=== PATIENT | male | born 1950 | race Caucasian/White ===

== ENCOUNTER 2021-08-07 17:54 | Inpatient (IN) | payer OTHER ==
[2021-08-07 20:03] VITALS: BMI 21.7
[2021-08-07] MEDS ORDERED: ACETAMINOPHEN 325 MG TABLET (FP) PO PRN (21:31)
[2021-08-07] MEDS ORDERED: LOPERAMIDE HCL 2 MG CAPSULE PO PRN (21:31)
[2021-08-07] MEDS ORDERED: BENZOCAINE/MENTHOL (CHLORASEPTIC ) LOZENGE MM PRN (21:31)
[2021-08-07] MEDS ORDERED: chlordiazePOXIDE HCL 25 MG CAPSULE PO PRN (21:31)
[2021-08-07] MEDS ORDERED: BISMUTH SUBSALICYLATE 524 MG/30 ML PO PRN (21:31)
[2021-08-07] MEDS ORDERED: DICYCLOMINE HCL 10 MG CAPSULE PO PRN (21:31)
[2021-08-07] MEDS ORDERED: MAG HYDROX/AL HYDROX/SIMETH 30 ML UNIT-DOSE CUP PO PRN (21:31)
[2021-08-07] MEDS ORDERED: MAGNESIUM CITRATE 300 ML BOTTLE PO PRN (21:31)
[2021-08-07] MEDS ORDERED: MAGNESIUM HYDROX 2400MG/30ML ORAL SUSPENSION 30 ML CUP PO PRN (21:31)
[2021-08-08] MEDS: THIAMINE HCL 100 MG TABLET (FP) PO SCH ×2 (00:02→22:28)
[2021-08-08] MEDS: ONDANSETRON *ODT* 4 MG TABLET SL PRN ×2 (00:02→09:01)
[2021-08-08] MEDS: chlordiazePOXIDE HCL 25 MG CAPSULE PO SCH ×5 (00:02→22:28)
[2021-08-08] MEDS: MELATONIN 5 MG TABLETS PO SCH ×2 (00:02→22:28)
[2021-08-08] MEDS: METHOCARBAMOL 500 MG TABLET PO PRN ×2 (10:20→22:29)
[2021-08-08] MEDS: PRENATAL VITAMINS W/ FOLIC ACID TABLET (FP) PO SCH (10:20)
[2021-08-08 12:57] LABS: HEMATOCRIT 41.2 % (35.4-49); HEMOGLOBIN 14.1 GM/dL (11.7-16.9); MCHC 34.2 g/dl (32.0-35.9); MEAN CELL VOLUME 102.3 fl (80-96); MEAN PLT VOLUME 9.7 fl (7.5-11.1); PLATELET COUNT 141 10^3/uL (134-434); RBC 4.03 M/mm3 (4.00-5.60); RDW 14.8 % (11.9-15.9); WHITE BLOOD COUNT 5.4 K/mm3 (4.0-10.0)
[2021-08-08 13:07] LABS: ALBUMIN 3.8 g/dl (3.4-5.0); BLOOD UREA NITROGEN 9.9 mg/dL (7-18)
[2021-08-08 13:10] LABS: CREATININE 0.9 mg/dL (0.55-1.3)
[2021-08-08 13:12] LABS: BILIRUBIN,TOTAL 1.5 mg/dL (0.2-1); TOT PROT 7.3 g/dl (6.4-8.2)
[2021-08-08] MEDS ORDERED: POTASSIUM CHLORIDE ORAL LIQUID 20 MEQ/15 ML PO ONE (17:45)
[2021-08-08] MEDS: IBUPROFEN 400 MG TABLET (FP) PO PRN (22:29)
[2021-08-09] MEDS: ACETAMINOPHEN 325 MG TABLET (FP) PO PRN ×3 (03:13→18:15)
[2021-08-09] MEDS: chlordiazePOXIDE HCL 25 MG CAPSULE PO SCH ×4 (07:08→22:25)
[2021-08-09] MEDS: PRENATAL VITAMINS W/ FOLIC ACID TABLET (FP) PO SCH (10:31)
[2021-08-09] MEDS: METHOCARBAMOL 500 MG TABLET PO PRN (22:25)
[2021-08-09] MEDS: MELATONIN 5 MG TABLETS PO SCH (22:25)
[2021-08-09] MEDS: THIAMINE HCL 100 MG TABLET (FP) PO SCH (22:25)
[2021-08-10] MEDS ORDERED: chlordiazePOXIDE HCL 10 MG CAPSULE PO PRN
[2021-08-10] MEDS: chlordiazePOXIDE HCL 10 MG CAPSULE PO SCH ×4 (05:54→22:07)
[2021-08-10] MEDS: IBUPROFEN 400 MG TABLET (FP) PO PRN (06:00)
[2021-08-10] MEDS: PRENATAL VITAMINS W/ FOLIC ACID TABLET (FP) PO SCH (10:14)
[2021-08-10] MEDS: ACETAMINOPHEN 325 MG TABLET (FP) PO PRN (10:16)
[2021-08-10] MEDS: THIAMINE HCL 100 MG TABLET (FP) PO SCH (22:06)
[2021-08-10] MEDS: MELATONIN 5 MG TABLETS PO SCH (22:06)
[2021-08-11] MEDS: chlordiazePOXIDE HCL 10 MG CAPSULE PO SCH ×2 (06:46→17:47)
[2021-08-11] MEDS: PRENATAL VITAMINS W/ FOLIC ACID TABLET (FP) PO SCH (10:40)
[2021-08-11] MEDS: ACETAMINOPHEN 325 MG TABLET (FP) PO PRN (10:52)
[2021-08-11] MEDS: MELATONIN 5 MG TABLETS PO SCH (22:21)
[2021-08-11] MEDS: THIAMINE HCL 100 MG TABLET (FP) PO SCH (22:22)
[2021-08-12] MEDS ORDERED: chlordiazePOXIDE HCL 10 MG CAPSULE PO ONE (05:00)
[2021-08-12] MEDS: IBUPROFEN 400 MG TABLET (FP) PO PRN (05:22)
[2021-08-12 09:10] VITALS: BP 111/60; PULSE 71; TEMP 97.7
[2021-08-12] MEDS: PRENATAL VITAMINS W/ FOLIC ACID TABLET (FP) PO SCH (10:14)
== END 2021-08-12 10:28 | disposition home or self-care (01) | DRG 897 ==
LOC: YASAS 17:54 → Y3N 21:32
PROVIDERS: ADMIT Allergy & Immunology; ATTEND Allergy & Immunology
PROC: HZ2ZZZZ Detoxification Services for Substance Abuse Treatment (ICD-10-PCS; principal; 2021-08-07)
DX: F10.230 Alcohol dependence with withdrawal, uncomplicated (principal); E87.6 Hypokalemia; R73.9 Hyperglycemia, unspecified; R79.89 Other specified abnormal findings of blood chemistry; Z88.7 Allergy status to serum and vaccine; Z56.0 Unemployment, unspecified; Z59.01 Sheltered homelessness
CPT/HCPCS: 36415; 80053; 82247; 82947; 83036; 84132; 85027; 86780; 93005; 93010; C9803-CS; Q0162; U0003; U0005

== ENCOUNTER 2021-12-01 08:43 | Inpatient (IN) | payer OTHER ==
[2021-12-01 09:52] VITALS: BMI 22.6
[2021-12-01] MEDS ORDERED: MAGNESIUM HYDROX 2400MG/30ML ORAL SUSPENSION 30 ML CUP PO PRN (10:07)
[2021-12-01] MEDS ORDERED: MAG HYDROX/AL HYDROX/SIMETH 30 ML UNIT-DOSE CUP PO PRN (10:07)
[2021-12-01] MEDS ORDERED: ACETAMINOPHEN 325 MG TABLET (FP) PO PRN (10:07)
[2021-12-01] MEDS ORDERED: BENZOCAINE/MENTHOL (CHLORASEPTIC ) LOZENGE MM PRN (10:07)
[2021-12-01] MEDS ORDERED: DICYCLOMINE HCL 10 MG CAPSULE PO PRN (10:07)
[2021-12-01] MEDS ORDERED: LOPERAMIDE HCL 2 MG CAPSULE PO PRN (10:07)
[2021-12-01] MEDS ORDERED: MAGNESIUM CITRATE 300 ML BOTTLE PO PRN (10:07)
[2021-12-01] MEDS ORDERED: BISMUTH SUBSALICYLATE 262 MG/15 ML BTL PO PRN (10:07)
[2021-12-01] MEDS: ONDANSETRON *ODT* 4 MG TABLET SL PRN ×2 (10:45→12:36)
[2021-12-01] MEDS: METHOCARBAMOL 500 MG TABLET PO PRN ×2 (12:44→19:40)
[2021-12-01] MEDS: chlordiazePOXIDE HCL 25 MG CAPSULE PO SCH ×3 (12:44→22:53)
[2021-12-01] MEDS: PRENATAL VITAMINS W/ FOLIC ACID TABLET (FP) PO SCH (12:45)
[2021-12-01 13:53] LABS: HEMATOCRIT 43.5 % (35.4-49); HEMOGLOBIN 14.5 GM/dL (11.7-16.9); MCH 32.2 pg (25.7-33.7); MCHC 33.4 g/dl (32.0-35.9); MEAN CELL VOLUME 96.6 fl (80-96); MEAN PLT VOLUME 8.5 fl (7.5-11.1); PLATELET COUNT 151 10^3/uL (134-434); RBC 4.51 M/mm3 (4.00-5.60); RDW 16.4 % (11.9-15.9); WHITE BLOOD COUNT 10.2 K/mm3 (4.0-10.0)
[2021-12-01 13:59] LABS: CALCIUM 9.5 mg/dL (8.5-10.1)
[2021-12-01 14:00] LABS: ALBUMIN 4.9 g/dl (3.4-5.0); BLOOD UREA NITROGEN 9.5 mg/dL (7-18)
[2021-12-01] MEDS ORDERED: hydrOXYzine PAMOATE 25 MG CAPSULE (FP) PO PRN (14:00)
[2021-12-01 14:03] LABS: CREATININE 0.8 mg/dL (0.55-1.3)
[2021-12-01 14:04] LABS: BILIRUBIN,TOTAL 0.6 mg/dL (0.2-1)
[2021-12-01 14:05] LABS: TOT PROT 8.5 g/dl (6.4-8.2)
[2021-12-01] MEDS: chlordiazePOXIDE HCL 25 MG CAPSULE PO PRN (19:42)
[2021-12-01] MEDS: THIAMINE HCL 100 MG TABLET (FP) PO SCH (22:53)
[2021-12-01] MEDS: MELATONIN 5 MG TABLETS PO SCH (22:53)
[2021-12-02] MEDS: chlordiazePOXIDE HCL 25 MG CAPSULE PO SCH ×4 (05:39→22:16)
[2021-12-02] MEDS: METHOCARBAMOL 500 MG TABLET PO PRN ×3 (05:40→18:19)
[2021-12-02] MEDS: PRENATAL VITAMINS W/ FOLIC ACID TABLET (FP) PO SCH (10:00)
[2021-12-02] MEDS: IBUPROFEN 600 MG TABLET (FP) PO PRN ×2 (10:02→22:13)
[2021-12-02] MEDS: ACETAMINOPHEN 325 MG TABLET (FP) PO PRN (14:00)
[2021-12-02] MEDS: MELATONIN 5 MG TABLETS PO SCH (22:09)
[2021-12-02] MEDS: THIAMINE HCL 100 MG TABLET (FP) PO SCH (22:09)
[2021-12-03] MEDS: METHOCARBAMOL 500 MG TABLET PO PRN ×3 (01:01→22:02)
[2021-12-03] MEDS: chlordiazePOXIDE HCL 25 MG CAPSULE PO SCH ×4 (05:21→22:02)
[2021-12-03] MEDS: IBUPROFEN 400 MG TABLET (FP) PO PRN (05:23)
[2021-12-03] MEDS: PRENATAL VITAMINS W/ FOLIC ACID TABLET (FP) PO SCH (10:05)
[2021-12-03] MEDS: ACETAMINOPHEN 325 MG TABLET (FP) PO PRN (10:08)
[2021-12-03 10:54] LABS: HEMOGLOBIN 13.5 GM/dL (11.7-16.9); MCH 32.4 pg (25.7-33.7); MCHC 33.7 g/dl (32.0-35.9); MEAN CELL VOLUME 96.1 fl (80-96); MEAN PLT VOLUME 9.3 fl (7.5-11.1); PLATELET COUNT 116 10^3/uL (134-434); RBC 4.17 M/mm3 (4.00-5.60); RDW 16.6 % (11.9-15.9); WHITE BLOOD COUNT 5.8 K/mm3 (4.0-10.0)
[2021-12-03] MEDS: IBUPROFEN 600 MG TABLET (FP) PO PRN ×2 (14:25→22:01)
[2021-12-03] MEDS: chlordiazePOXIDE HCL 25 MG CAPSULE PO PRN (14:28)
[2021-12-03] MEDS: THIAMINE HCL 100 MG TABLET (FP) PO SCH (21:59)
[2021-12-03] MEDS: MELATONIN 5 MG TABLETS PO SCH (21:59)
[2021-12-04] MEDS ORDERED: chlordiazePOXIDE HCL 10 MG CAPSULE PO PRN
[2021-12-04] MEDS: chlordiazePOXIDE HCL 10 MG CAPSULE PO SCH ×4 (06:20→22:01)
[2021-12-04] MEDS: PRENATAL VITAMINS W/ FOLIC ACID TABLET (FP) PO SCH (10:17)
[2021-12-04] MEDS: METHOCARBAMOL 500 MG TABLET PO PRN ×2 (10:21→19:46)
[2021-12-04] MEDS: IBUPROFEN 400 MG TABLET (FP) PO PRN (10:21)
[2021-12-04] MEDS: IBUPROFEN 600 MG TABLET (FP) PO PRN (17:49)
[2021-12-04 21:27] VITALS: RESP 18
[2021-12-04] MEDS: MELATONIN 5 MG TABLETS PO SCH (22:01)
[2021-12-04] MEDS: THIAMINE HCL 100 MG TABLET (FP) PO SCH (22:01)
[2021-12-05] MEDS: IBUPROFEN 600 MG TABLET (FP) PO PRN ×2 (00:35→06:02)
[2021-12-05] MEDS ORDERED: chlordiazePOXIDE HCL 10 MG CAPSULE PO SCH (05:00)
[2021-12-05] MEDS: METHOCARBAMOL 500 MG TABLET PO PRN (06:03)
[2021-12-05 09:40] VITALS: BP 142/79; PULSE 67; TEMP 98.1
[2021-12-05] MEDS: PRENATAL VITAMINS W/ FOLIC ACID TABLET (FP) PO SCH (10:31)
[2021-12-05] MEDS: ACETAMINOPHEN 325 MG TABLET (FP) PO PRN (11:42)
[2021-12-06] MEDS ORDERED: chlordiazePOXIDE HCL 10 MG CAPSULE PO ONE (05:00)
== END 2021-12-05 11:55 | disposition home or self-care (01) | DRG 897 ==
LOC: YASAS 08:43 → Y6N 10:33
PROVIDERS: ADMIT Allergy & Immunology; ATTEND Surgery
PROC: HZ2ZZZZ Detoxification Services for Substance Abuse Treatment (ICD-10-PCS; principal; 2021-12-01)
DX: F10.230 Alcohol dependence with withdrawal, uncomplicated (principal); F10.220 Alcohol dependence with intoxication, uncomplicated; F10.282 Alcohol dependence with alcohol-induced sleep disorder; F10.280 Alcohol dependence with alcohol-induced anxiety disorder; R26.2 Difficulty in walking, not elsewhere classified; Z99.89 Dependence on other enabling machines and devices; Z88.8 Allergy status to other drugs, medicaments and biological substances; Z86.69 Personal history of other diseases of the nervous system and sense organs; Z59.01 Sheltered homelessness
CPT/HCPCS: 36415; 80053; 82947; 83036; 84450; 85027; 86780; 87811; C9803-CS; Q0162; U0003; U0005

== ENCOUNTER 2022-07-11 19:49 | Inpatient (IN) | payer OTHER ==
[2022-07-11 20:35] VITALS: BMI 23.7
[2022-07-11] MEDS ORDERED: BENZONATATE 200 MG CAPSULE PO PRN (21:22)
[2022-07-11] MEDS ORDERED: P-EPHED 60MG/TRIPROLIDI 2.5MG TABLET PO PRN (21:22)
[2022-07-11] MEDS ORDERED: POLYETHYLENE GLYCOL (HEALTHYLAX) 3350 17 GM PACKET PO PRN (21:22)
[2022-07-11] MEDS ORDERED: DICYCLOMINE HCL 10 MG CAPSULE PO PRN (21:22)
[2022-07-11] MEDS ORDERED: BISMUTH SUBSALICYLATE 524 MG/30 ML PO PRN (21:22)
[2022-07-11] MEDS ORDERED: LOPERAMIDE HCL 2 MG CAPSULE PO PRN (21:22)
[2022-07-11] MEDS ORDERED: ONDANSETRON *ODT* 4 MG TABLET SL PRN (21:22)
[2022-07-11] MEDS ORDERED: MAG HYDROX/AL HYDROX/SIMETH 30 ML UNIT-DOSE CUP PO PRN (21:22)
[2022-07-11] MEDS ORDERED: MAGNESIUM HYDROX 2400MG/30ML ORAL SUSPENSION 30 ML CUP PO PRN (21:22)
[2022-07-11] MEDS ORDERED: guaiFENesin 600 MG TABLET.ER (FP) PO PRN (21:22)
[2022-07-11] MEDS ORDERED: BENZOCAINE/MENTHOL (CHLORASEPTIC ) LOZENGE MM PRN (21:22)
[2022-07-11] MEDS ORDERED: NALOXONE HCL 0.4 MG/ML VIAL IM PRN (21:22)
[2022-07-11] MEDS ORDERED: chlordiazePOXIDE HCL 25 MG CAPSULE PO PRN (21:24)
[2022-07-11] MEDS ORDERED: chlordiazePOXIDE HCL 25 MG CAPSULE ONE (23:07)
[2022-07-11] MEDS: THIAMINE HCL 100 MG TABLET (FP) PO SCH (23:13)
[2022-07-11] MEDS: chlordiazePOXIDE HCL 25 MG CAPSULE PO SCH (23:13)
[2022-07-12] MEDS: chlordiazePOXIDE HCL 25 MG CAPSULE PO SCH ×4 (06:24→22:28)
[2022-07-12 10:36] LABS: HEMATOCRIT 36.6 % (35.4-49); HEMOGLOBIN 12.5 GM/dL (11.7-16.9); MCH 32.9 pg (25.7-33.7); MCHC 34.1 g/dl (32.0-35.9); MEAN CELL VOLUME 96.4 fl (80-96); MEAN PLT VOLUME 8.9 fl (7.5-11.1); PLATELET COUNT 110 10^3/uL (134-434); RDW 14.7 % (11.9-15.9); WHITE BLOOD COUNT 5.4 K/mm3 (4.0-10.0)
[2022-07-12] MEDS: PRENATAL VITAMINS W/ FOLIC ACID TABLET (FP) PO SCH (10:50)
[2022-07-12 11:42] LABS: ALBUMIN 3.9 g/dl (3.4-5.0); BLOOD UREA NITROGEN 8.7 mg/dL (7-18); CALCIUM 9.3 mg/dL (8.5-10.1)
[2022-07-12 11:46] LABS: BILIRUBIN,TOTAL 0.7 mg/dL (0.2-1); CREATININE 0.7 mg/dL (0.55-1.3)
[2022-07-12 11:48] LABS: TOT PROT 7.4 g/dl (6.4-8.2)
[2022-07-12] MEDS: IBUPROFEN 600 MG TABLET (FP) PO PRN (19:26)
[2022-07-12] MEDS: MELATONIN 5 MG TABLETS PO PRN (22:28)
[2022-07-12] MEDS: THIAMINE HCL 100 MG TABLET (FP) PO SCH (22:28)
[2022-07-13] MEDS: IBUPROFEN 600 MG TABLET (FP) PO PRN ×3 (05:48→18:47)
[2022-07-13] MEDS: chlordiazePOXIDE HCL 25 MG CAPSULE PO SCH ×4 (05:48→22:07)
[2022-07-13] MEDS: PRENATAL VITAMINS W/ FOLIC ACID TABLET (FP) PO SCH (10:48)
[2022-07-13] MEDS: ACETAMINOPHEN 325 MG TABLET (FP) PO PRN (11:11)
[2022-07-13] MEDS ORDERED: COLCHICINE 0.6 MG TAB PO ONE ×2 (15:32→18:00)
[2022-07-13] MEDS: MELATONIN 5 MG TABLETS PO PRN (22:06)
[2022-07-13] MEDS: TOLNAFTATE 1% POWDER 45 GM POW TP SCH (22:07)
[2022-07-13] MEDS: THIAMINE HCL 100 MG TABLET (FP) PO SCH (22:07)
[2022-07-14] MEDS ORDERED: chlordiazePOXIDE HCL 10 MG CAPSULE PO PRN
[2022-07-14] MEDS: IBUPROFEN 600 MG TABLET (FP) PO PRN ×2 (01:49→17:11)
[2022-07-14] MEDS: chlordiazePOXIDE HCL 10 MG CAPSULE PO SCH ×4 (05:02→22:23)
[2022-07-14] MEDS: PRENATAL VITAMINS W/ FOLIC ACID TABLET (FP) PO SCH (10:13)
[2022-07-14] MEDS: TOLNAFTATE 1% POWDER 45 GM POW TP SCH ×2 (10:14→22:24)
[2022-07-14] MEDS: IBUPROFEN 400 MG TABLET (FP) PO PRN ×2 (10:17→22:26)
[2022-07-14] MEDS: THIAMINE HCL 100 MG TABLET (FP) PO SCH (22:23)
[2022-07-14] MEDS: MELATONIN 5 MG TABLETS PO PRN (22:23)
[2022-07-15] MEDS: chlordiazePOXIDE HCL 10 MG CAPSULE PO SCH ×2 (05:54→16:53)
[2022-07-15] MEDS: PRENATAL VITAMINS W/ FOLIC ACID TABLET (FP) PO SCH (10:13)
[2022-07-15] MEDS: TOLNAFTATE 1% POWDER 45 GM POW TP SCH ×2 (10:14→22:17)
[2022-07-15] MEDS: ACETAMINOPHEN 325 MG TABLET (FP) PO PRN (16:56)
[2022-07-15] MEDS: IBUPROFEN 600 MG TABLET (FP) PO PRN (22:16)
[2022-07-15] MEDS: MELATONIN 5 MG TABLETS PO PRN (22:16)
[2022-07-15] MEDS: THIAMINE HCL 100 MG TABLET (FP) PO SCH (22:16)
[2022-07-16] MEDS ORDERED: chlordiazePOXIDE HCL 10 MG CAPSULE PO ONE (05:00)
[2022-07-16 09:44] VITALS: BP 126/69; PULSE 71; RESP 18; TEMP 97.8
[2022-07-16] MEDS: PRENATAL VITAMINS W/ FOLIC ACID TABLET (FP) PO SCH (09:53)
[2022-07-16] MEDS: TOLNAFTATE 1% POWDER 45 GM POW TP SCH (09:53)
== END 2022-07-16 11:30 | disposition home or self-care (01) | DRG 897 ==
LOC: YASAS 19:49 → Y6N 22:43
PROVIDERS: ADMIT Allergy & Immunology; ATTEND Surgery
PROC: HZ2ZZZZ Detoxification Services for Substance Abuse Treatment (ICD-10-PCS; principal; 2022-07-11)
DX: F10.230 Alcohol dependence with withdrawal, uncomplicated (principal); F41.9 Anxiety disorder, unspecified; F32.A Depression, unspecified; M10.9 Gout, unspecified; B35.3 Tinea pedis; R26.89 Other abnormalities of gait and mobility; Z99.89 Dependence on other enabling machines and devices; Z88.7 Allergy status to serum and vaccine
CPT/HCPCS: 36415; 80053; 84550; 85027; 86780; 87811; C9803-CS; Q0162; U0003; U0005